=== PATIENT | male | born 1965 ===

== ENCOUNTER → 2019-04-08 | Outpatient (REF) ==
--- NOTE | 2019-04-08 19:29 | REP ---
HIPS BILATERAL WITH AP PELVIS: 04/08/2019. Clinical history pain. Disability determination. AP pelvis: There is a right total hip arthroplasty with the two components appearing grossly intact. The acetabulum. Pelvic ring intact. Sacral ala and foramina symmetric and SI joints intact. Iliac wings unremarkable, acetabuli, pubic rami, symphysis pubis intact. The left hip shows no gross abnormality on the AP pelvis. Right hip: AP and frog-leg views show the right total hip arthroplasty with the two components well-aligned in relationship to each other and the [place] bone. No lucencies along the prosthetic interface with these bones. There is no fracture or destructive lesion. The right SI joint, sacral ala were intact. Left hip shows no significant degenerative change, joint space narrowing bone spur or destructive lesion of the acetabulum or femoral head. The femoral head shows no evidence of AVN or fracture. Femoral neck, trochanters and proximal shaft were intact. Adjacent acetabulum, ischia and pubic symphysis as well as that portion of the left iliac bone and SI joint and all intact. Impression: 1. Status post right total hip arthroplasty with the prosthetic components well aligned in relationship to each other and the [place] bone. No destructive lesion. 2. Left hip negative. No other findings in the AP pelvis or hips. Electronically Signed by Jaswinder Peralta MD 04/08/2019 07:49 P
== END ==
LOC: M SMT 11:10
PROVIDERS: ATTEND Internal Medicine
DX: Z00.00 Encounter for general adult medical examination without abnormal findings (principal)